=== PATIENT | male | born 1950 | race Two or more races ===

== ENCOUNTER 2022-07-27 11:30 | Emergency (ER) | payer OTHER ==
[~2022-07-27] VITALS: Ht 165.1 cm; Wt 77.1 kg
[2022-07-27 11:40] VITALS: BP 150/75
[2022-07-27] MEDS ORDERED: AMOX500C2 PO (13:00)
[2022-07-27] MEDS ORDERED: CARB15DR12 RIGHT EAR (13:00)
--- NOTE | 2022-07-27 13:15 | NUR ---
Patient discharged to home in stable condition ambulating by self. Written and verbal after care instructions given. Patient verbalizes understanding of instruction.
== END 2022-07-27 13:17 | disposition home or self-care (01) ==
LOC: ER 11:35
DX: H66.91 Otitis media, unspecified, right ear (principal); H61.21 Impacted cerumen, right ear; I10 Essential (primary) hypertension; E78.5 Hyperlipidemia, unspecified